=== PATIENT | female | born 1940 | race Asian ===

== ENCOUNTER 2017-04-01 20:20 | Emergency (ER) | payer MEDICARE, OTHER ==
[~2017-04-01] VITALS: Ht 162.6 cm; Wt 70.3 kg
[~2017-04-01 20:20] MED LIST: ACETAMINOPHEN-1 EAC1 ORAL; UNOBMED; anti depressant; bp meds
[2017-04-01] MEDS ORDERED: ATENOLOL25 MG ORAL (20:30)
[2017-04-01] MEDS ORDERED: COZAAR25 MG ORAL (20:30)
[2017-04-01] MEDS ORDERED: Ketorolac 60mg Inj IM ONE (20:45)
[2017-04-01] MEDS ORDERED: IBUPROFEN600 MG ORAL (21:19)
[2017-04-01 22:46] VITALS: BP 187/90
--- NOTE | 2017-04-02 00:12 | Emergency Room Report ---
History of Present Illness General Chief Complaint: Multiple Trauma/Fall Source: Patient Present Illness [facility] The patient 76-year-old female presented after increased right shoulder pain right knee pain after fall. Patient fell from standing onto her right side. She reported being able to ambulate after injury. She denied any neck pain. The patient had no loss of consciousness. She's not having any fever Allergies: Coded Allergies: No Known Allergies (Unverified , 08/10/12) Patient History Last Menstrual Period: n/a Reviewed Nursing Documentation: PMH: Agreed, PSxH: Agreed Nursing Documentation-PMH Past Medical History: No History, Except For Hx Hypertension: Yes Review of Systems All Other Systems: negative except mentioned in HPI Physical Exam Vital Signs Date Time Temp Pulse Resp B/P Pulse Ox O2 Delivery O2 Flow Rate FiO2 04/01/17 20:22 97.5 63 16 187/90 97 Room Air General Appearance: well appearing, no apparent distress, alert, GCS 15 Head: normocephalic, atraumatic ENT: hearing grossly normal, normal voice Neck: full range of motion, supple Respiratory: no respiratory distress, speaking full sentences Cardiovascular #1: normal peripheral pulses, regular rate, rhythm Gastrointestinal: normal inspection Musculoskeletal: normal inspection, no calf tenderness Neurologic: normal inspection, alert, oriented x3, normal gait Psychiatric: mood/affect normal Skin: no rash Medical Decision Making Diagnostic Impression: Primary Impression: Biceps muscle tear Additional Impression: Contusion of knee, right ER Course The patient presented for right shoulder pain after a fall. Differential diagnoses included was not limited to fracture, dislocation, a.c. separation, septic joint. X-ray imaging of the right knee was also obtained. X-ray of the right knee 3 views interpreted by me showed degenerative changes without fracture. Patient is placed in a sling. The patient is advised to follow up with primary care doctor in 1-2 days. Patient is advised to return if any worsening condition or if any changes in status that are concerning. Last Vital Signs Date Time Temp Pulse Resp B/P Pulse Ox O2 Delivery O2 Flow Rate FiO2 04/01/17 22:46 97.6 16 187/90 97 Room Air 04/01/17 22:45 79 Status: improved Disposition: HOME, SELF-CARE Condition: Stable Scripts Ibuprofen* (MOTRIN*) 600 Mg Tablet 600 MG ORAL Q8H Y for For Pain, #30 TAB 0 Refills Prov: eKv Fernandez 04/01/17 Referrals: NOT CHOSEN IPA/MD,REFERRING (PCP) Patient Instructions: Contusion, Muscle Tear Kev Fernandez Apr 02, 2017 00:12
--- NOTE | 2017-04-02 11:02 | Diagnostic Imaging Report ---
Indication: PAIN, status post fall Technique: 3 views of the right shoulder Comparison: none Findings: No acute fractures. No dislocations. Joint spaces are preserved Impression:Negative
--- NOTE | 2017-04-02 11:04 | Diagnostic Imaging Report ---
Indication: PAIN Technique: 3 views of the right knee Comparison: None Findings:There is soft tissue swelling over the patella. There is minimal medial compartmental degenerative joint space narrowing. There are medial compartmental osteophytes. No acute fractures. There are superior pole patellar traction osteophytes. No suprapatellar effusion Impression:No acute bony trauma Prepatellar soft tissue swelling, likely represents soft tissue contusion Degenerative changes, as described
== END 2017-04-01 22:40 | disposition home or self-care (01) ==
LOC: EMR 20:50
DX: S46.211A Strain of muscle, fascia and tendon of other parts of biceps, right arm, initial encounter (principal); S80.01XA Contusion of right knee, initial encounter; I10 Essential (primary) hypertension; W18.30XA Fall on same level, unspecified, initial encounter; Y92.9 Unspecified place or not applicable
CPT/HCPCS: 96372; 99283